=== PATIENT | male | born 1945 | race Caucasian/White ===

== ENCOUNTER → 2016-10-08 | Outpatient (CLI) | payer BC ==
[~2016-10-08] MED LIST: ASCO-63 PO; ASPCH81 PO; CLOP1TAB15 PO; FLV1 PO; MTH25 PO; MULT-506 PO; OMEP20CA59 PO; PRED10TA PO; PRVHFAIN INH
[2016-10-08 09:28] LABS: BASO % 0.1 %; BASO ABS # 0.01 K/uL (0-0.2); COMPLETE YES; EOS % 3.1 %; HEMATOCRIT 44.6 % (42-52); IG% 0.1 %; LYMPH % 7.5 %; LYMPH ABS # 0.56 K/uL (1.2-3.4); MEAN CELL VOLUME 95.1 fL (80-100); MEAN CORPUSCULAR HEMOGLOBIN 32.6 pg (25-34); MEAN CORPUSCULAR HGB CONC 34.3 g/dl (32-36); MEAN PLATELET VOLUME 9.8 fL (7.4-10.4); MONO % 6.4 %; NEUT % 82.8 %; PLATELET COUNT 197 K/uL (130-400); RED BLOOD COUNT 4.69 M/uL (4.7-6.1); WHITE BLOOD COUNT 7.47 K/uL (4.8-10.8)
[2016-10-08 09:39] LABS: ALT/SGPT 29 U/L (12-78); BLOOD UREA NITROGEN 21 mg/dl (7-18); BUN/CREATININE RATIO 17.2 (10-20); CARBON DIOXIDE 29 mmol/L (21-32); CHLORIDE 103 mmol/L (98-107); GLUCOSE 89 mg/dl (70-99); POTASSIUM 3.8 mmol/L (3.5-5.1); SODIUM 141 mmol/L (136-145)
[2016-10-08 09:42] LABS: ALB/GLOB RATIO 1.3 (0.9-2); ALKALINE PHOSPHATASE 105 U/L (45-117); AST/SGOT 15 U/L (15-37)
== END | disposition home or self-care (01) ==
LOC: C.LAB 07:06
PROVIDERS: ATTEND Internal Medicine
DX: Z11.59 Encounter for screening for other viral diseases (principal); D86.9 Sarcoidosis, unspecified; G47.33 Obstructive sleep apnea (adult) (pediatric); Z79.52 Long term (current) use of systemic steroids; E53.8 Deficiency of other specified B group vitamins

== ENCOUNTER → 2017-03-11 | Outpatient (CLI) | payer BC ==
--- NOTE | 2017-03-11 14:19 | DIAGNOSTIC IMAGING REPORT ---
TWO VIEW CHEST CLINICAL HISTORY: Sarcoidosis. Cough and dyspnea. FINDINGS: PA and lateral chest radiographs are compared to study dated 06/05/2016. The cardiomediastinal silhouette is unremarkable. There are calcified mediastinal and hilar lymph nodes. There is a large right perihilar density which measures up to 5 cm. Additional calcified granulomas as well as bilateral upper lobe opacities are increasingly conspicuous from previous. No pleural effusion or pneumothorax is seen. The skeletal structures are osteopenic. The bony thorax appears intact. IMPRESSION: 1. There is a 5 cm right perihilar density which represents a change from 06/05/2016. Although this could represent hilar adenopathy given the history of sarcoidosis, follow-up with a chest CT is recommended to exclude pulmonary neoplasm. 2. There are bilateral upper lobe airspace opacities which are increasingly conspicuous from previous. This should also be assessed by CT. 3. No pleural effusion is identified. 4. Calcified mediastinal and hilar lymph nodes as well as calcified granulomas are noted. Electronically signed by: Madi Patton M.D. 03/11/2017 2:17 PM Dictated Date/Time: 03/11/2017 2:09 PM
== END | disposition home or self-care (01) ==
LOC: C.LAB 12:59
PROVIDERS: ATTEND Physician Assistant Medical
DX: D86.9 Sarcoidosis, unspecified (principal)

== ENCOUNTER → 2017-03-11 | Outpatient (CLI) | payer BC ==
[~2017-03-11] VITALS: Ht 175.3 cm; Wt 81.6 kg
[2017-03-11 12:15] VITALS: BP 123/75; PULSE 69; Ht 175.3 cm; Wt 81.6 kg
== END | disposition home or self-care (01) ==
LOC: C.NEUR 11:45
PROVIDERS: ATTEND Physician Assistant Medical
DX: J20.9 Acute bronchitis, unspecified (principal); D86.9 Sarcoidosis, unspecified

== ENCOUNTER → 2017-03-28 | Outpatient (CLI) | payer BC ==
--- NOTE | 2017-03-28 10:51 | DIAGNOSTIC IMAGING REPORT ---
CLINICAL HISTORY: D86.9 [id number] COMPARISON STUDY: 03/11/2017 FINDINGS: The cardiac images so contours remain stable. There is stable hilar enlargement in left superior hilar retraction. There are calcified mediastinal and hilar lymph nodes. There are fibronodular upper lung zone opacities. There is no acute parenchymal consolidation. There are no pleural effusions.[ IMPRESSION: Persistent calcified mediastinal and hilar lymph nodes. Persistent hilar enlargement and fibronodular apical opacities. No change from the preceding study Electronically signed by: Jesus George M.D. 03/28/2017 10:50 AM Dictated Date/Time: 03/28/2017 10:40 AM
[2017-03-28 12:17] LABS: BASO % 0.1 %; BASO ABS # 0.01 K/uL (0-0.2); COMPLETE YES; EOS % 0.8 %; HEMATOCRIT 42.2 % (42-52); IG% 0.1 %; LYMPH % 6.2 %; LYMPH ABS # 0.55 K/uL (1.2-3.4); MEAN CELL VOLUME 97.2 fL (80-100); MEAN CORPUSCULAR HEMOGLOBIN 32.9 pg (25-34); MEAN CORPUSCULAR HGB CONC 33.9 g/dl (32-36); MEAN PLATELET VOLUME 9.6 fL (7.4-10.4); MONO % 6.6 %; NEUT % 86.2 %; PLATELET COUNT 187 K/uL (130-400); RED BLOOD COUNT 4.34 M/uL (4.7-6.1); WHITE BLOOD COUNT 8.81 K/uL (4.8-10.8)
[2017-03-28 12:31] LABS: ALT/SGPT 53 U/L (12-78); AST/SGOT 25 U/L (15-37); BLOOD UREA NITROGEN 16 mg/dl (7-18); BUN/CREATININE RATIO 12.7 (10-20); CALCIUM 8.5 mg/dl (8.5-10.1); CARBON DIOXIDE 30 mmol/L (21-32); CHLORIDE 109 mmol/L (98-107); GLUCOSE 76 mg/dl (70-99); SODIUM 145 mmol/L (136-145)
[2017-03-28 12:33] LABS: ALB/GLOB RATIO 1.3 (0.9-2); ALKALINE PHOSPHATASE 100 U/L (45-117)
== END | disposition home or self-care (01) ==
LOC: C.RAD 09:50
PROVIDERS: ATTEND Physician Assistant Medical
DX: D86.9 Sarcoidosis, unspecified (principal); G47.33 Obstructive sleep apnea (adult) (pediatric); I89.8 Other specified noninfective disorders of lymphatic vessels and lymph nodes

== ENCOUNTER → 2017-04-07 | Day surgery (SDC) | payer BC ==
[2017-03-26 13:26] VITALS: BMI 27.0
[~2017-04-07] VITALS: Ht 175.3 cm; Wt 84.1 kg
[~2017-04-07] MED LIST changes: +LIDOCAINE HCL 2% 2 ML VIAL (20MG/ML) ONE; +PROPOFOL IV EMULSION 10 MG/ML 20 ML VIAL IV ONE; +SODIUM CHLORIDE 0.9% 500ML 500 ML IV ONE
[2017-04-07 10:10] VITALS: Ht 175.3 cm; Wt 84.1 kg
--- NOTE | 2017-04-07 10:40 | Endo History and Physical ---
History & Physical Date of Service: Apr 07, 2017. Chief Complaint: SCREENING Referring Physician: DR. MELENDEZ History of Present Illness 71 yo CM who presents for screening colonoscopy. Past Medical History Reflux, CVA/TIA, Other Past Surgical History Hx Cardiac Surgery: No Hx Internal Defibrillator: No Hx Pacemaker: No Hx Abdominal Surgery: No Hx of Implantable Prosthesis: No Hx Post-Op Nausea and Vomiting: No Hx Cancer Surgery: No Hx Thoracic Surgery: Yes (BRONCHOSCOPY, LUNG BIOPSY) Hx Orthopedic: Yes (RT ULNAR NERVE SX, LEFT ELBOW TENDON SX) Hx Urinary Tract Surgery: Yes (VASECTOMY) Family History None Social History Smoking Status: Never Smoker Hx Substance Use: No Hx Alcohol Use: Yes (OCCASIONALLY) Allergies Coded Allergies: No Known Allergies (Verified , 04/07/17) Current Medications Reported Home Medications Medications Dose Route/Sig Max Daily Dose Days Date Category Dose Instructions Vitamin C (Ascorbic Acid) 500 Mg Tab 1 Tab PO QPM 03/26/17 Reported Ventolin Hfa (Albuterol) 60 Puffs/5400 Mcg Aers 1 Puff INH Q6H PRN 03/26/17 Reported Prednisone 10 Mg Tab 10 Mg PO DIRECTED 03/26/17 Reported Prilosec (Omeprazole) 20 Mg Capcr 20 Mg PO QPM 03/26/17 Reported Folic Acid 1 Mg Tab 1 Mg PO 6XWK 02/18/15 Reported Methotrexate 2.5 Mg Tab 4 Tabs PO WK 02/18/15 Reported PT TAKES ON MONDAYS Multivitamin (Multivitamins) Tab 1 Tab PO QPM 10/29/10 Reported Aspirin Tab-Chewable * (Aspirin) 81 Mg Chew 81 Mg PO QAM 10/29/10 Reported Plavix (Clopidogrel Bisulfate) 75 Mg Tab 75 Mg PO QAM 10/29/10 Reported Vital Signs Weight (Kilograms): 84.09 Height (Feet): 5 Height (Inches): 9 Date Time Temp Pulse Resp B/P (MAP) Pulse Ox O2 Delivery O2 Flow Rate FiO2 04/07/17 10:17 36.3 59 20 152/78 (102) 98 Room Air Physical Exam General Appearance: WD/WN, no apparent distress Respiratory/Chest: Auscultation: breath sounds normal Cardiovascular: Heart Auscultation: RRR Abdomen: Bowel Sounds: normal Inspection & Palpation: soft, non-distended, no tenderness, guarding & rebound Assessment and Plan Assessment: 71 yo CM who presents for screening colonoscopy. Plan: Proceed with colonoscopy.
--- NOTE | 2017-04-07 11:49 | Discharge Instructions ---
Endoscopy Patient Instructions Date / Procedure(s) Performed Apr 07, 2017. Colonoscopy Allergy Information Coded Allergies: No Known Allergies (Verified , 04/07/17) Discharge Date / Findings Apr 07, 2017. Diverticulosis Internal hemorrhoids Medication Instructions Stopped Medication(s): OFF PLAVIX FOR 5 DAYS OK to resume all medications today as prescribed Reported Home Medications Medications Dose Route/Sig Max Daily Dose Days Date Category Dose Instructions Vitamin C (Ascorbic Acid) 500 Mg Tab 1 Tab PO QPM 03/26/17 Reported Ventolin Hfa (Albuterol) 60 Puffs/5400 Mcg Aers 1 Puff INH Q6H PRN 03/26/17 Reported Prednisone 10 Mg Tab 10 Mg PO DIRECTED 03/26/17 Reported Prilosec (Omeprazole) 20 Mg Capcr 20 Mg PO QPM 03/26/17 Reported Folic Acid 1 Mg Tab 1 Mg PO 6XWK 02/18/15 Reported Methotrexate 2.5 Mg Tab 4 Tabs PO WK 02/18/15 Reported PT TAKES ON MONDAYS Multivitamin (Multivitamins) Tab 1 Tab PO QPM 10/29/10 Reported Aspirin Tab-Chewable * (Aspirin) 81 Mg Chew 81 Mg PO QAM 10/29/10 Reported Plavix (Clopidogrel Bisulfate) 75 Mg Tab 75 Mg PO QAM 10/29/10 Reported Provider Instructions Activity Restrictions - No exercising or heavy lifting for 24 hours. - Do not drink alcohol the day of the procedure. - Do not drive a car or operate machinery until the day after the procedure. - Do not make any important decisions or sign important papers in 24 hours after the procedure. Following Day: - Return to full activity which may include returning to work/school. Diet Start your diet with liquids and light foods (jello, soup, juice, toast). Then eat your usual diet if not nauseated. Treatment For Common After Affects For mild abdominal pain, bloating, or excessive gas: - Rest - Eat lightly - Lie on right side Follow-Up Information Follow-up with DR. MELENDEZ as scheduled Anesthesia Information What You Should Know You have had a procedure that required some medicine to reduce anxiety and discomfort. This treatment is called moderate sedation. After receiving the treatment, you may be sleepy, but you will be able to breathe on your own. The effects of the treatment may last for several hours. Follow these instructions along with Activity/Diet recommendations noted above: * Do NOT do anything where dizziness or clumsiness would be dangerous. * Rest quietly at home today, then you can be up and about tomorrow. * Have a responsible person stay with you the rest of today. * You may have had an I.V. today. If so, you may take the dressing off later today. Recommendations Call your doctor if: * Trouble breathing * Continuous vomiting for more than 24 hours * Temperature above 101 degrees * Severe abdominal pain or bloating * Pain not relieved by pain medicine ordered * There is increased drainage or redness from any incision * A large amount of rectal bleeding greater than 2-3 tablespoons. (If you had a polyp/s removed or have hemorrhoids, a small amount of blood - from the rectum is to be expected.) * You have any unanswered questions or concerns. IN THE EVENT OF A SERIOUS EMERGENCY, GO TO THE NEAREST EMERGENCY ROOM Your discharge instructions were prepared by provider Lucas Wheeler. Patient Instructions Signature Page Torito Basilio Patient (or Guardian) Signature/Date: I have read and understand the instructions given to me by my caregivers. Caregiver/RN/Doctor Signature/Date: The above-named patient and/or guardian has received patient instructions on this date. + Original Patient Signature Page (only) stays with chart. Please make copy for patient.
--- NOTE | 2017-04-07 12:00 | Anesthesiology Progress Note ---
Anesthesia Post Op Note Date & Time Apr 07, 2017 at 11:59 Vital Signs Pain Intensity: 0 Vital Signs Past 12 Hours Date Time Temp Pulse Resp B/P (MAP) Pulse Ox O2 Delivery O2 Flow Rate FiO2 04/07/17 11:45 36.3 70 20 133/69 (90) 98 Room Air 04/07/17 10:17 36.3 59 20 152/78 (102) 98 Room Air Notes Mental Status: alert / awake / arousable, participated in evaluation Pt Amnestic to Procedure: Yes Nausea / Vomiting: adequately controlled Pain: adequately controlled Airway Patency, RR, SpO2: stable & adequate BP & HR: stable & adequate Hydration State: stable & adequate Anesthetic Complications: no major complications apparent
[2017-04-07 12:15] VITALS: BP 139/69; PULSE 68; O2SAT 99
--- NOTE | 2017-04-08 00:14 | GI REPORT ---
Procedure Date: 04/07/2017 10:55 AM Procedure: Colonoscopy Indications: Screening for colorectal malignant neoplasm Medicines: Monitored Anesthesia Care Complications: No immediate complications. Estimated Blood Loss: Estimated blood loss: none. Procedure: Pre-Anesthesia Assessment: - Prior to the procedure, a History and Physical was performed, and patient medications and allergies were reviewed. The patient's tolerance of previous anesthesia was also reviewed. The risks and benefits of the procedure and the sedation options and risks were discussed with the patient. All questions were answered, and informed consent was obtained. Prior Anticoagulants: The patient last took aspirin 1 day and Plavix (clopidogrel) 5 days prior to the procedure. ASA Grade Assessment: III - A patient with severe systemic disease. After reviewing the risks and benefits, the patient was deemed in satisfactory condition to undergo the procedure. After I obtained informed consent, the scope was passed under direct vision. Throughout the procedure, the patient's blood pressure, pulse, and oxygen saturations were monitored continuously. The scope was introduced through the anus and advanced to the terminal ileum. The colonoscopy was performed without difficulty. The patient tolerated the procedure well. The quality of the bowel preparation was good. The terminal ileum, ileocecal valve, appendiceal orifice, and rectum were photographed. Findings: Multiple small-mouthed diverticula were found in the sigmoid colon. Non-bleeding internal hemorrhoids were found during retroflexion. The hemorrhoids were small. Impression: - Diverticulosis in the sigmoid colon. - Non-bleeding internal hemorrhoids. - No specimens collected. Recommendation: - Resume previous diet. - Continue present medications. - No repeat colonoscopy due to age and the absence of advanced adenomas. - Return to primary care physician as previously scheduled. Lucas Wheeler, 04/07/2017 11:54:36 AM This report has been signed electronically. Note Initiated On: 04/07/2017 10:55 AM I attest to the content of the Intraoperative Record and orders documented therein, exceptions below
== END | disposition home or self-care (01) ==
LOC: C.GI 09:49
PROVIDERS: ATTEND Internal Medicine
DX: Z12.11 Encounter for screening for malignant neoplasm of colon (principal); K57.30 Diverticulosis of large intestine without perforation or abscess without bleeding; K64.8 Other hemorrhoids; K21.9 Gastro-esophageal reflux disease without esophagitis; Z86.73 Personal history of transient ischemic attack (TIA), and cerebral infarction without residual deficits; Z79.02 Long term (current) use of antithrombotics/antiplatelets; Z79.82 Long term (current) use of aspirin; Z79.899 Other long term (current) drug therapy

== ENCOUNTER → 2017-07-24 | Outpatient (CLI) | payer BC ==
[~2017-07-24] MED LIST changes: -LIDOCAINE HCL 2% 2 ML VIAL (20MG/ML) ONE; -PROPOFOL IV EMULSION 10 MG/ML 20 ML VIAL IV ONE; -SODIUM CHLORIDE 0.9% 500ML 500 ML IV ONE
--- NOTE | 2017-07-24 09:01 | DIAGNOSTIC IMAGING REPORT ---
CHEST 2 VIEWS ROUTINE CLINICAL HISTORY: D86.9 [id number] sarcoid COMPARISON STUDY: 03/28/2017 FINDINGS: Mild increase in hilar fullness compared to the prior study. Stable calcified mediastinal and hilar adenopathy unchanged parenchymal changes peripheral aspect right upper lung. Diaphragms remain somewhat smooth. Costophrenic angles are sharp. IMPRESSION: Slight increase in hilar fullness bilaterally given differences in technical factors The above report was generated using voice recognition software. It may contain grammatical, syntax or spelling errors. Electronically signed by: Vipul Tyler M.D. 07/24/2017 9:00 AM Dictated Date/Time: 07/24/2017 8:59 AM
== END | disposition home or self-care (01) ==
LOC: C.RAD 08:46
PROVIDERS: ATTEND Internal Medicine Pulmonary Disease
DX: D86.9 Sarcoidosis, unspecified (principal)

== ENCOUNTER → 2017-08-07 | Outpatient (CLI) | payer BC ==
[2017-08-07 09:59] LABS: BASO % 0.1 %; BASO ABS # 0.02 K/uL (0-0.2); COMPLETE YES; EOS % 0.6 %; HEMATOCRIT 47.6 % (42-52); IG% 0.6 %; LYMPH ABS # 0.58 K/uL (1.2-3.4); MEAN CELL VOLUME 97.9 fL (80-100); MEAN CORPUSCULAR HEMOGLOBIN 32.5 pg (25-34); MEAN CORPUSCULAR HGB CONC 33.2 g/dl (32-36); MEAN PLATELET VOLUME 9.7 fL (7.4-10.4); MONO % 3.5 %; NEUT % 91.2 %; PLATELET COUNT 181 K/uL (130-400); RED BLOOD COUNT 4.86 M/uL (4.7-6.1); WHITE BLOOD COUNT 14.44 K/uL (4.8-10.8)
[2017-08-07 10:05] LABS: ALT/SGPT 40 U/L (12-78); BLOOD UREA NITROGEN 26 mg/dl (7-18); BUN/CREATININE RATIO 21.9 (10-20); CALCIUM 8.7 mg/dl (8.5-10.1); CARBON DIOXIDE 33 mmol/L (21-32); CHLORIDE 102 mmol/L (98-107); GLUCOSE 84 mg/dl (70-99); SODIUM 138 mmol/L (136-145)
[2017-08-07 10:08] LABS: ALB/GLOB RATIO 1.3 (0.9-2); ALKALINE PHOSPHATASE 133 U/L (45-117); AST/SGOT 17 U/L (15-37)
== END | disposition home or self-care (01) ==
LOC: C.LAB 09:05
PROVIDERS: ATTEND Internal Medicine Pulmonary Disease
DX: G47.33 Obstructive sleep apnea (adult) (pediatric) (principal)

== ENCOUNTER → 2017-08-12 | Outpatient (CLI) | payer BC | END | disposition home or self-care (01) | LOC: C.LAB 08:47 | PROVIDERS: ATTEND Internal Medicine | DX: I67.9 Cerebrovascular disease, unspecified (principal); E53.8 Deficiency of other specified B group vitamins; N40.0 Benign prostatic hyperplasia without lower urinary tract symptoms ==

== ENCOUNTER → 2017-12-09 | Outpatient (CLI) | payer BC ==
[2017-12-09 09:42] LABS: BASO % 0.3 %; BASO ABS # 0.02 K/uL (0-0.2); EOS % 2.1 %; EOS ABS # 0.13 K/uL (0-0.5); HEMATOCRIT 43.6 % (42-52); HEMOGLOBIN 14.7 g/dL (14.0-18.0); IG# 0.01 K/uL (0.00-0.02); LYMPH % 8.4 %; LYMPH ABS # 0.53 K/uL (1.2-3.4); MEAN CELL VOLUME 95.6 fL (80-100); MEAN CORPUSCULAR HEMOGLOBIN 32.2 pg (25-34); MEAN CORPUSCULAR HGB CONC 33.7 g/dl (32-36); MEAN PLATELET VOLUME 10.1 fL (7.4-10.4); MONO % 8.1 %; MONO ABS # 0.51 K/uL (0.11-0.59); NEUT % 80.9 %; NEUT ABS # 5.08 K/uL (1.4-6.5); PLATELET COUNT 173 K/uL (130-400); RED CELL DISTRIBUTION WIDTH CV 12.8 % (11.5-14.5); RED CELL DISTRIBUTION WIDTH SD 44.2 fL (36.4-46.3); WHITE BLOOD COUNT 6.28 K/uL (4.8-10.8)
[2017-12-09 10:03] LABS: ALBUMIN 3.6 gm/dl (3.4-5.0); ALT/SGPT 50 U/L (12-78); AST/SGOT 32 U/L (15-37); BLOOD UREA NITROGEN 21 mg/dl (7-18); CARBON DIOXIDE 31 mmol/L (21-32); CREATININE 1.15 mg/dl (0.60-1.40); GLUCOSE 90 mg/dl (70-99); SODIUM 140 mmol/L (136-145)
[2017-12-09 10:05] LABS: ALKALINE PHOSPHATASE 133 U/L (45-117); TOTAL PROTEIN 6.6 gm/dl (6.4-8.2)
== END | disposition home or self-care (01) ==
LOC: C.LAB 07:09
PROVIDERS: ATTEND Internal Medicine Pulmonary Disease
DX: D86.9 Sarcoidosis, unspecified (principal); G47.33 Obstructive sleep apnea (adult) (pediatric); J31.0 Chronic rhinitis; Z79.52 Long term (current) use of systemic steroids

== ENCOUNTER → 2018-04-11 | Outpatient (CLI) | payer BC ==
[2018-04-11 07:34] LABS: BASO % 0.3 %; BASO ABS # 0.02 K/uL (0-0.2); EOS % 2.6 %; EOS ABS # 0.17 K/uL (0-0.5); HEMATOCRIT 43.1 % (42-52); HEMOGLOBIN 14.4 g/dL (14.0-18.0); IG# 0.01 K/uL (0.00-0.02); LYMPH % 8.7 %; LYMPH ABS # 0.58 K/uL (1.2-3.4); MEAN CELL VOLUME 97.3 fL (80-100); MEAN CORPUSCULAR HEMOGLOBIN 32.5 pg (25-34); MEAN CORPUSCULAR HGB CONC 33.4 g/dl (32-36); MONO % 7.8 %; MONO ABS # 0.52 K/uL (0.11-0.59); NEUT % 80.4 %; NEUT ABS # 5.34 K/uL (1.4-6.5); PLATELET COUNT 188 K/uL (130-400); RED CELL DISTRIBUTION WIDTH CV 12.7 % (11.5-14.5); RED CELL DISTRIBUTION WIDTH SD 44.9 fL (36.4-46.3); WHITE BLOOD COUNT 6.64 K/uL (4.8-10.8)
--- NOTE | 2018-04-11 07:35 | DIAGNOSTIC IMAGING REPORT ---
CHEST 2 VIEWS ROUTINE CLINICAL HISTORY: J31.0 Chronic [id number] SARCOIDOSIS COMPARISON STUDY: July 24, 2017 FINDINGS: The heart is normal in size. There are hilar and mediastinal calcifications. There is superior left hilar retraction. There are bilateral hilar masses, suggestive of progressive massive fibrosis. There is diffuse an interstitial thickening with increasing nodular right upper lobe airspace opacities.[ There is no acute parenchymal consolidation. There are no pleural effusions. IMPRESSION: 1. Calcified adenopathy 2. Bilateral hilar masses, possibly secondary to progressive massive fibrosis 3. Interstitial thickening 4. Slight increased prominence of right upper lobe nodular opacities. While possibly secondary to the patient's underlying sarcoidosis, it would be difficult to exclude a coexistent malignancy. 5. CT scanning should be considered in follow-up as was previously recommended. Electronically signed by: Jesus George M.D. 04/11/2018 7:34 AM Dictated Date/Time: 04/11/2018 7:30 AM
[2018-04-11 08:08] LABS: ALBUMIN 3.6 gm/dl (3.4-5.0); ALKALINE PHOSPHATASE 144 U/L (45-117); ALT/SGPT 38 U/L (12-78); AST/SGOT 23 U/L (15-37); BLOOD UREA NITROGEN 24 mg/dl (7-18); CALCIUM 8.8 mg/dl (8.5-10.1); CARBON DIOXIDE 29 mmol/L (21-32); CHOLESTEROL 154 mg/dl (0-200); CREATININE 1.13 mg/dl (0.60-1.40); GLUCOSE 88 mg/dl (70-99); LDL CHOLESTEROL CALCULATED 79 mg/dl; POTASSIUM 4.1 mmol/L (3.5-5.1); SODIUM 143 mmol/L (136-145); TOTAL PROTEIN 6.6 gm/dl (6.4-8.2)
== END | disposition home or self-care (01) ==
LOC: C.RAD 06:58
PROVIDERS: ATTEND Internal Medicine Pulmonary Disease
DX: J31.0 Chronic rhinitis (principal); Z12.5 Encounter for screening for malignant neoplasm of prostate; I67.9 Cerebrovascular disease, unspecified; R59.9 Enlarged lymph nodes, unspecified; R91.8 Other nonspecific abnormal finding of lung field